=== PATIENT | female | born 1995 | race African-American/Black ===

== ENCOUNTER 2017-07-13 14:48 | Emergency (ER) | payer MEDICAID ==
[~2017-07-13] VITALS: Ht 152.4 cm; Wt 56.8 kg
[2017-07-13 14:53] VITALS: BP 131/87
[2017-07-13 15:49] LABS: BASOPHILS % (AUTO) 1.2 % (0.0-2.0); EOSINOPHILS % (AUTO) 2.7 % (1.0-6.0); HEMATOCRIT 38.6 % (36-46); HEMOGLOBIN 13.1 g/dL (12.0-16.0); LYMPHOCYTES # (AUTO) 1.3 K/uL (1.0-4.8); LYMPHOCYTES % (AUTO) 33.1 % (22.0-44.0); MEAN CORPUSCULAR HEMOGLOBIN 28.1 pg (26.0-34.0); MEAN CORPUSCULAR HGB CONC 34.1 G/dL (31.0-37.0); MEAN CORPUSCULAR VOLUME 82 fL (80-100); MONOCYTES # (AUTO) 0.5 K/uL (0.1-1.0); MONOCYTES % (AUTO) 12.6 % (2.0-9.0); NEUTROPHILS % (AUTO) 50.4 % (40.0-70.0); PLATELET COUNT (AUTO) 205 K/uL (150-450); RED BLOOD CELL COUNT(AUTO) 4.68 MIL/uL (4.00-5.20); RED CELL DISTRIBUTION WIDTH 13.7 % (11.5-14.5)
[2017-07-13 15:58] LABS: ANION GAP 8 mmol/L (8-16); CALCIUM, TOTAL 9.7 mg/dL (8.8-10.5); CARBON DIOXIDE 27 mmol/L (22-29); CHLORIDE 101 mmol/L (98-107); CREATININE 0.92 mg/dL (0.60-1.30); GLOMERULAR FILTR. RATE CALC > 60 mL/min (>60); GLUCOSE,RANDOM 90 mg/dL (70-110); POTASSIUM 4.1 mmol/L (3.5-5.1); SODIUM SERUM 136 mmol/L (136-145); UREA NITROGEN, BLOOD 6 mg/dL (7-18)
[2017-07-13 15:58] LABS: APPEARANCE,URINE CLEAR (CLEAR); BILIRUBIN,URINE NEGATIVE (NEGATIVE); GLUCOSE, URINE (UA) NEGATIVE (NEGATIVE); KETONES,URINE NEGATIVE (NEGATIVE); LEUKOCYTE ESTERASE ,URINE SMALL (NEGATIVE); NITRATE,URINE NEGATIVE (NEGATIVE); OCCULT BLOOD,URINE NEGATIVE (NEGATIVE); PROTEIN,URINE NEGATIVE (NEGATIVE); UROBILINOGEN,URINE 0.2 mg/dL (<=1.0)
[2017-07-13 16:05] LABS: ALANINE AMINOTRANSFERASE 28 U/L (12-78); ALBUMIN 4.1 g/dL (3.4-5.0); ALKALINE PHOSPHATASE 53 U/L (46-116); ASPARTATE AMINOTRANSFERASE 17 U/L (15-37); BILIRUBIN,TOTAL 0.5 mg/dL (0.1-1.0); TOTAL PROTEIN, SERUM 8.4 g/dL (6.4-8.2)
[2017-07-13 16:08] LABS: PLATELET MORPHOLOGY COMMENT GIANT PLTS PRESENT
[2017-07-13 16:16] LABS: BACTERIA,URINE Few /HPF (None Seen); RBC,URINE 0-2 /HPF (0-2)
[2017-07-13 16:17] LABS: SQUAMOUS EPITHELIAL CELL,UR Moderate /LPF (None Seen)
[2017-07-13] MEDS ORDERED: AZITHROMYCIN 250 MG TABLET PO ONE (16:30)
== END 2017-07-13 17:00 | disposition home or self-care (01) ==
LOC: EMS 14:50
DX: R51 Headache (principal); H53.8 Other visual disturbances
CPT/HCPCS: 99284

== ENCOUNTER 2018-02-02 10:20 | Emergency (ER) | payer SELFPAY ==
[~2018-02-02] VITALS: Ht 152.4 cm; Wt 54.5 kg
[2018-02-02 12:40] VITALS: BP 122/78
== END 2018-02-02 12:51 | disposition home or self-care (01) ==
LOC: EMS 10:23
DX: J06.9 Acute upper respiratory infection, unspecified (principal)
CPT/HCPCS: 87430

== ENCOUNTER 2022-01-06 10:25 | Emergency (ER) | payer MEDICAID ==
[~2022-01-06] VITALS: Ht 154.9 cm; Wt 68.2 kg
[2022-01-06] MEDS ORDERED: ACETAMINOPHEN 500 MG TABLET PO ONE (10:45)
[2022-01-06 11:20] LABS: COVID AG,FIA SOURCE NASAL SWAB
[2022-01-06 11:49] LABS: INFLUENZA TYPE B NEGATIVE FOR TYPE B (NEGATIVE)
[2022-01-06 11:54] LABS: INFLUENZA TYPE A POSITIVE FOR TYPE A (NEGATIVE)
[2022-01-06 12:05] VITALS: BP 120/77
== END 2022-01-06 12:09 | disposition home or self-care (01) ==
LOC: EMS 10:25
DX: J11.1 Influenza due to unidentified influenza virus with other respiratory manifestations (principal); Z20.822 Contact with and (suspected) exposure to COVID-19
CPT/HCPCS: 87804; 99283